=== PATIENT | female | born 1985 ===

== ENCOUNTER → 2018-05-29 | Outpatient (CLI) | payer OTHER ==
[2016-09-08 20:29] VITALS: BMI 26.6
[~2018-05-29] MED LIST: Benzocaine 60 ML TP; CALC-1046 PO; DOCU240C67 PO; IBUP800T37 PO; LOR5/325 PO; Lanolin TP; OMEG300C PO; PREN-162 PO; TUCKS TP
[2018-05-29 10:25] LABS: PLATELET COUNT, AUTOMATED 247 K/uL (150-450)
== END ==
LOC: LAB 07:53
PROVIDERS: ATTEND Student in an Organized Health Care Education/Training Program
DX: Z34.01 Encounter for supervision of normal first pregnancy, first trimester (principal)
CPT/HCPCS: 36415; 81001; 85025; 86592; 86703; 86762; 86850; 86900; 86901; 87088; 87340

== ENCOUNTER → 2018-06-25 | Outpatient (CLI) | payer OTHER ==
[2016-09-08 20:29] VITALS: BMI 26.6
[~2018-06-25] MED LIST changes: +FLU60SYR36 IM
== END ==
LOC: LAB 08:03
PROVIDERS: ATTEND Student in an Organized Health Care Education/Training Program
DX: Z34.91 Encounter for supervision of normal pregnancy, unspecified, first trimester (principal)
CPT/HCPCS: 87491; 87591

== ENCOUNTER → 2018-07-24 | Outpatient (CLI) | payer OTHER ==
[2016-09-08 20:29] VITALS: BMI 26.6
== END ==
LOC: LAB 08:23
PROVIDERS: ATTEND Advanced Practice Midwife
DX: Z34.92 Encounter for supervision of normal pregnancy, unspecified, second trimester (principal)
CPT/HCPCS: 36415; 81511

== ENCOUNTER → 2018-08-17 | Outpatient (CLI) | payer OTHER ==
[2016-09-08 20:29] VITALS: BMI 26.6
--- NOTE | 2018-08-17 11:33 | RADIOLOGY IMAGING REPORT ---
[place] [facility] [place] NAME: Basilio Martínez : 1985 MR: [id number] V: [id number] EXAM DATE: ORDERING PHYSICIAN: TANIA LOPEZ TECHNOLOGIST: Location: [facility] Patient: Basilio Martínez : 1985 Visit/Account:[id number] Date of Sevice: 08/17/2018 EXAMINATION: Ultrasound transabdominal OB > 14 weeks with anatomic evaluation HISTORY: 20 week anatomical survey COMPARISON: None. TECHNIQUE: Transabdominal imaging was performed for assessment of the fetus and maternal pelvic structures. T ransvaginal imaging was not performed. FINDINGS: Placenta: Anterior posterior and towards the left without previa. Uterus: Gravid, otherwise normal Cervix: Long and closed. Maternal Ovaries: Not visualized. Maternal and other adnexa findings: Not visualized Intrauterine gestations: One. presentation: Variable heart rate: Normal and regular at 143 bpm Amniotic fluid index: 13.48 cm Largest amniotic fluid pocket: 42 cm Gestational Parameters: BPD: 4.3 cm 19 weeks/ one days, 27% HC: 16.35 cm 19 weeks/ one days, 22% AC: 13.62 cm 19 weeks/ one days, 28% FL: 3.14 cm 19 weeks/ six days, 49% Average ultrasound age (AUA): 19 weeks/three days, PAZ 01/08/2019 Estimated gestational age by PAZ: 19 weeks/four days, PAZ 01/07/2019 Estimated weight (EFW): 288 grams +/- 42 grams EFW for PAZ: 33 percentile Anatomic Survey: Intracranial structures, 4-chamber heart, stomach, kidneys, urinary bladder, spine, 3-vessel cord and cord insertion are unremarkable. Two upper and two lower extremities visualized. Cardiac ventricula r outflow tracts, palate and lips are unremarkable in appearance. IMPRESSION: Single viable fetus in viable presentation with an estimated gestational age by measurem ents of 19 weeks and three days. Estimated gestational age by LMP is 19 weeks and four days. Estimated weight is 288 g equivalent to the 33rd percentile Report Dictated By: Imelda Jones MD at 08/17/2018 11:23 AM Report E-Signed By: Imelda Jones MD at 08/17/2018 11:28 AM WSN:[email or web address]
== END ==
LOC: RAD 08:59
PROVIDERS: ATTEND Advanced Practice Midwife
DX: Z02.9 Encounter for administrative examinations, unspecified (principal)

== ENCOUNTER → 2018-10-12 | Outpatient (CLI) | payer OTHER ==
[2016-09-08 20:29] VITALS: BMI 26.6
[~2018-10-12] MED LIST changes: +DIPH0.5S2 IM
[2018-10-12 10:13] LABS: PLATELET COUNT, AUTOMATED 188 K/uL (150-450)
== END ==
LOC: LAB 08:19
PROVIDERS: ATTEND Student in an Organized Health Care Education/Training Program
DX: Z34.92 Encounter for supervision of normal pregnancy, unspecified, second trimester (principal)
CPT/HCPCS: 36415; 82950; 85025